=== PATIENT | male | born 1980 | race Caucasian/White ===

== ENCOUNTER 2022-05-17 19:50 | Outpatient (CLI) | payer OTHER ==
[2022-05-18 00:21] LABS: CHLAMYDIA TRACHOMATIS DNA NEGATIVE (NEGATIVE); NEISSERIA GONORRHOEAE DNA NEGATIVE (NEGATIVE)
[2022-05-19 10:07] LABS: HCV AB <0.1 s/co ratio (0.0-0.9)
[2022-05-19 11:07] LABS: RPR Non Reactive (Non Reactive)
[2022-05-20 00:07] LABS: HIV SCREEN 4TH GENERATION Non Reactive (Non Reactive)
== END 2022-05-17 19:51 | disposition home or self-care (01) ==
LOC: LAB 19:50
PROVIDERS: ATTEND Physician Assistant Medical
DX: Z11.3 Encounter for screening for infections with a predominantly sexual mode of transmission (principal)
CPT/HCPCS: 86592; 86803; 87389; 87491; 87591; 87661